=== PATIENT | male | born 1985 | race Caucasian/White ===

== ENCOUNTER 2019-05-20 22:37 | Emergency (ER) | payer BC, SELFPAY ==
[2019-05-20 22:49] VITALS: BP 121/82; PULSE 80; RESP 16; TEMP 36.3; O2SAT 99; BMI 23.4
--- NOTE | 2019-05-20 22:50 | ECG_ITS ---
Measurements Intervals [place] Rate: 72 P: 19 DC: 123 QRS: 75 QRSD: 97 T: 48 QT: 360 QTc: 395 SINUS RHYTHM WITH SINUS ARRHYTHMIA No previous ECG available for comparison Electronically Signed On 05-21-2019 6:24:38 [employer] by Dali Smith M.D. [email or web address]
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
[2019-05-20 23:24] LABS: Basophils # 0.1 10^3/uL (0.0-0.1); Basophils % 0.4 %; Eosinophils # 0.2 10^3/uL (0.0-0.8); Eosinophils % 1.2 %; Hemoglobin 16.7 g/dL (11.7-16.6); Lymphocytes # 2.5 10^3/uL (0.8-4.8); Lymphocytes % 19.5 %; Mean Corpuscular HGB Conc 34.1 g/dL (30.0-36.0); Mean Corpuscular Hemoglobin 31.2 pg (28.0-34.0); Mean Corpuscular Volume 91.4 fL (80-94); Mean Platelet Volume 9.7 fL (7.4-10.4); Monocytes # 0.8 10^3/uL (0.2-0.9); Monocytes % 6.3 %; Neutrophils # 9.1 10^3/uL (1.8-7.7); Neutrophils % 72.3 %; Nucleated Red Blood Cells % 0 %; Platelet Count 357 10^3/cmm (130-400); Red Blood Count 5.36 10^6/uL (4.1-5.3); White Blood Count 12.6 10^3/uL (4.0-10.0)
[2019-05-20 23:40] LABS: Alanine Aminotransferase 18 U/L (0-41); Albumin Level 4.7 g/dL (3.5-5.2); Alkaline Phosphatase 111 IU/L (40-130); Anion Gap 17.5 (5-19); Aspartate Amino Transferase 16 U/L (0-40); Blood Urea Nitrogen 11 mg/dL (6-20); Calcium 10.6 mg/dL (8.5-10.5); Carbon Dioxide 27 mmol/L (22-29); Chloride 99 mmol/L (98-107); Creatinine Clr Calc Pharmacy 129.9164; Globulin 2.2 g/dL (1.3-4.6); Glucose 99 mg/dL (65-115); Magnesium 2.1 mg/dL (1.7-2.3); Potassium 3.5 mmol/L (3.5-5.1); Sodium 140 mmol/L (136-145); Total Bilirubin 0.7 mg/dL (0.15-1.2); Total Protein 6.9 g/dL (6.6-8.7)
[2019-05-20 23:43] LABS: Troponin(5th) Baseline 6 ng/mL (0-15)
[2019-05-20] MEDS: sodium chloride 0.9% 1,000 ML 999 ML IV (23:50)
[2019-05-20 23:53] VITALS: BP 110/70; PULSE 73
[2019-05-20 23:58] VITALS: BP 129/68; PULSE 78
[2019-05-21 00:11] LABS: Alcohol Level < 10 mg/dL (0-10)
[2019-05-21 00:24] LABS: Urine Appearance Clear (CLEAR); Urine Color Yellow (Yellow); pH Urine 6 (5-7)
[2019-05-21 00:25] LABS: Bilirubin Urine Neg (NEGATIVE); Blood Urine Neg (Negative); Glucose Urine UA Norm (Normal); Ketones Urine 2+ (Negative); Leukocyte Esterase Urine Negative (Negative); Nitrate Urine Negative (Negative); Protein Urine Neg (Negative); Urobilinogen Urine Norm (Negative)
[2019-05-21 00:26] LABS: Add Urine Culture? No
[2019-05-21 00:27] LABS: Amphetamines Screen Urine Negative (Negative); Barbiturates Screen Urine Negative (Negative); Benzodiazepines Screen Urine Negative (Negative); Cocaine Screen Urine Negative (Negative); Opiate Screen Urine Negative (Negative); PCP Screen Urine Negative (Negative); THC Screen Urine Negative (Negative)
[2019-05-21] MEDS: sodium chloride 0.9% 1,000 ML 999 ML IV (01:34)
[2019-05-21 01:59] LABS: Troponin 5 2HR Delta 0 ABS# (0-10)
[2019-05-21 03:13] VITALS: BP 106/78; PULSE 87; RESP 18; O2SAT 98
== END 2019-05-21 03:14 | disposition home or self-care (01) ==
PROVIDERS: Emergency Provider Emergency Medicine
DX: R55 Syncope and collapse (principal); Z87.891 Personal history of nicotine dependence
CPT/HCPCS: 36415; 80053; 80307; 81001; 83735; 84484; 85025; 93005; 96360; 99284; J7030

== ENCOUNTER → 2021-07-12 11:21 | Outpatient (BNVA) | payer BC, SELFPAY | PROVIDERS: Visit Provider Emergency Medicine | DX: S62.306A Unspecified fracture of fifth metacarpal bone, right hand, initial encounter for closed fracture (principal); X58.XXXA Exposure to other specified factors, initial encounter | CPT/HCPCS: 73130 ==

== ENCOUNTER → 2021-07-17 08:13 | Outpatient (BNVA) | payer BC, SELFPAY | PROVIDERS: Referring Provider Emergency Medicine; Visit Provider Specialist | DX: S62.339A Displaced fracture of neck of unspecified metacarpal bone, initial encounter for closed fracture (principal); M79.641 Pain in right hand; X58.XXXA Exposure to other specified factors, initial encounter | CPT/HCPCS: 73130 ==

== ENCOUNTER 2021-07-17 10:32 | Outpatient (CLI) | payer BC, SELFPAY | END 2021-07-17 10:33 | disposition home or self-care (01) | LOC: SPT 10:33 | PROVIDERS: Visit Provider Specialist | DX: Z46.89 Encounter for fitting and adjustment of other specified devices (principal); S62.366D Nondisplaced fracture of neck of fifth metacarpal bone, right hand, subsequent encounter for fracture with routine healing; X58.XXXD Exposure to other specified factors, subsequent encounter | CPT/HCPCS: 97760; L3984 ==

== ENCOUNTER → 2021-08-09 08:14 | Outpatient (BNVA) | payer BC, SELFPAY | PROVIDERS: Visit Provider Specialist | DX: S62.339A Displaced fracture of neck of unspecified metacarpal bone, initial encounter for closed fracture (principal); X58.XXXA Exposure to other specified factors, initial encounter | CPT/HCPCS: 73130 ==

== ENCOUNTER 2022-01-03 06:00 | Outpatient (RCR) | payer OTHER, SELFPAY | END 2022-01-22 23:59 | disposition home or self-care (01) | LOC: MOT 06:00 | PROVIDERS: Visit Provider Orthopaedic Surgery | DX: S66.322D Laceration of extensor muscle, fascia and tendon of right middle finger at wrist and hand level, subsequent encounter (principal); X58.XXXD Exposure to other specified factors, subsequent encounter | CPT/HCPCS: 97110; 97140; 97166 ==

== ENCOUNTER 2022-01-23 06:00 | Outpatient (RCR) | payer OTHER, SELFPAY | END 2022-02-21 23:59 | disposition home or self-care (01) | LOC: MOT 06:00 | PROVIDERS: Visit Provider Orthopaedic Surgery | DX: S66.322D Laceration of extensor muscle, fascia and tendon of right middle finger at wrist and hand level, subsequent encounter (principal); X58.XXXD Exposure to other specified factors, subsequent encounter; M79.642 Pain in left hand | CPT/HCPCS: 97110; 97140 ==

== ENCOUNTER 2022-06-06 06:00 | Outpatient (RCR) | payer OTHER, SELFPAY | END 2022-06-22 23:59 | disposition home or self-care (01) | LOC: MOT 06:00 | PROVIDERS: Visit Provider Orthopaedic Surgery | DX: S61.213D Laceration without foreign body of left middle finger without damage to nail, subsequent encounter (principal); X58.XXXD Exposure to other specified factors, subsequent encounter | CPT/HCPCS: 97110; 97140; 97166 ==

== ENCOUNTER 2022-06-23 06:00 | Outpatient (RCR) | payer OTHER, SELFPAY | END 2022-07-22 23:59 | disposition home or self-care (01) | LOC: MOT 06:00 | PROVIDERS: Visit Provider Orthopaedic Surgery | DX: Z47.89 Encounter for other orthopedic aftercare (principal) | CPT/HCPCS: 97022; 97110; 97140 ==

== ENCOUNTER 2022-07-23 06:00 | Outpatient (RCR) | payer OTHER, SELFPAY | END 2022-08-22 23:59 | disposition home or self-care (01) | LOC: MOT 06:00 | PROVIDERS: Visit Provider Orthopaedic Surgery | DX: S61.213D Laceration without foreign body of left middle finger without damage to nail, subsequent encounter (principal); Y99.9 Unspecified external cause status | CPT/HCPCS: 97022; 97110; 97140 ==

== ENCOUNTER 2022-08-23 06:00 | Outpatient (RCR) | payer OTHER, SELFPAY | END 2022-09-21 23:59 | disposition home or self-care (01) | LOC: MOT 06:00 | PROVIDERS: Visit Provider Orthopaedic Surgery | DX: S66.322D Laceration of extensor muscle, fascia and tendon of right middle finger at wrist and hand level, subsequent encounter (principal); X58.XXXD Exposure to other specified factors, subsequent encounter | CPT/HCPCS: 97110; 97140 ==

== ENCOUNTER 2022-09-22 06:00 | Outpatient (RCR) | payer OTHER, SELFPAY | END 2022-10-22 23:59 | disposition home or self-care (01) | LOC: MOT 06:00 | PROVIDERS: Visit Provider Orthopaedic Surgery | DX: S66.322D Laceration of extensor muscle, fascia and tendon of right middle finger at wrist and hand level, subsequent encounter (principal); X58.XXXD Exposure to other specified factors, subsequent encounter | CPT/HCPCS: 97110; 97140 ==

== ENCOUNTER → 2024-04-15 09:37 | Outpatient (BNVA) | payer BC, SELFPAY | PROVIDERS: Visit Provider Nurse Practitioner | DX: R50.9 Fever, unspecified (principal) | CPT/HCPCS: 87400; 87426 ==